=== PATIENT | male | born 1985 | race Two or more races ===

== ENCOUNTER 2019-02-07 18:28 | Emergency (ER) | payer SELFPAY ==
[2019-02-07] MEDS ORDERED: DIPH/PERTUSS(ACELL)/TETANUS VAC/PF 0.5 ML SYR (>=10YO) IM ONE (18:40)
--- NOTE | 2019-02-07 18:42 | ER Document Report ---
ED Medical Screen (RME) - General Chief Complaint: Wrist Pain Stated Complaint: HAND INJURY Time Seen by Provider: 02/07/19 18:37 Primary Care Provider: SHANE SAENZ [Primary Care Provider] - Follow up as needed Notes: This 33-year-old male presents emergency department with a laceration to his right wrist. Patient reports he cut himself on some glass. Does not know when his last tetanus was. Is not taking any anticoagulants. Laceration noted to the medial part of his right wrist approximately 4 cm long irregular deep no active bleeding at this time. Patient reports that his fourth and fifth digit feel numb. Good cap refill. I have greeted and performed a rapid initial assessment of this patient. A comprehensive ED assessment and evaluation of the patient, analysis of test results and completion of the medical decision making process will be conducted by additional ED providers. Dictation of this chart was performed using voice recognition software; therefore, there may be some unintended grammatical errors. TRAVEL OUTSIDE OF THE [place] IN LAST 30 DAYS: No Doctor's Discharge - Discharge Referrals: SHANE SAENZ [Primary Care Provider] - Follow up as needed
--- NOTE | 2019-02-07 19:07 | RADIOLOGY REPORT (SQ) ---
EXAM DESCRIPTION: WRIST RIGHT 3 VIEWS COMPLETED DATE/TIME: 02/07/2019 6:58 pm REASON FOR STUDY: laceration COMPARISON: None. NUMBER OF VIEWS: Three views. TECHNIQUE: AP, lateral, and oblique radiographic images acquired of the right wrist. LIMITATIONS: None. FINDINGS: MINERALIZATION: Normal. BONES: No acute fracture or dislocation. No worrisome bone lesions. Normal alignment. SOFT TISSUES: No radiopaque foreign body. OTHER: No other significant finding. IMPRESSION: NO ACUTE BONE ABNORMALITY OF THE RIGHT WRIST. NO RADIOPAQUE SOFT TISSUE FOREIGN BODY. TECHNICAL DOCUMENTATION: JOB ID: [id number] [employer]- All Rights Reserved Reading location - IP/workstation name: [email or web address]
[2019-02-07] MEDS ORDERED: LIDOCAINE 1%/EPINEPHRINE INJ 20 ML VIAL INJ ONE (20:13)
--- NOTE | 2019-02-07 20:17 | ER Document Report ---
ED General - General Chief Complaint: Wrist Pain Stated Complaint: HAND INJURY Time Seen by Provider: 02/07/19 18:37 Primary Care Provider: SHANE SAENZ [NO LOCAL MD] - Follow up as needed Notes: 33-year-old right hand dominant male presents emergency department with a laceration to his right wrist at around 5 pm. Patient reports he cut himself on some glass. Does not know when his last tetanus was. Is not taking any anticoagulants. Laceration noted to the medial part of his right wrist approximately 4 cm long irregular deep no active bleeding at this time. Patient reports that his fourth and fifth digit feel numb. Good cap refill. TRAVEL OUTSIDE OF THE [place] IN LAST 30 DAYS: No Past Medical History - Social History Smoking Status: Never Smoker Chew tobacco use (# tins/day): No Frequency of alcohol use: None Drug Abuse: None Family History: None Patient has suicidal ideation: No Patient has homicidal ideation: No Renal/ Medical History: Denies: Hx Peritoneal Dialysis Review of Systems - Review of Systems Constitutional: See HPI EENT: No symptoms reported Cardiovascular: No symptoms reported Respiratory: No symptoms reported Gastrointestinal: No symptoms reported Genitourinary: No symptoms reported Male Genitourinary: No symptoms reported Musculoskeletal: See HPI Skin: No symptoms reported Hematologic/Lymphatic: No symptoms reported Neurological/Psychological: See HPI Physical Exam - Vital signs Vitals: Temp Pulse Resp BP Pulse Ox 97.7 F 76 17 122/92 H 94 02/07/19 18:34 02/07/19 18:34 02/07/19 18:34 02/07/19 18:34 02/07/19 18:34 - Notes Notes: PHYSICAL EXAMINATION: Reviewed vital signs and charting by RN GENERAL: Alert, interacts well. No acute distress. HEAD: Normocephalic, atraumatic. EYES: Pupils equal and round. Extraocular movements intact. ENT: Oral mucosa moist, tongue midline. NECK: Full range of motion. Trachea midline. EXTREMITIES: Moves all 4 extremities spontaneously. No edema, No cyanosis. PSYCH: Normal affect, normal mood. SKIN: Warm, dry, normal turgor. 4 cm transverse laceration on the medial aspect of his right wrist just proximal to the ulnar head not actively bleeding that goes into the subcutaneous tissue, patient with reduced sensation to the fourth and fifth right digits of his hand, 5/5 strength in both flexor and extensor tendons to active movement and to resistance. Course - Re-evaluation Re-evalutation: 02/07/19 20:16 Overall well-appearing. Plan is a primary closure using 4-0 Ethilon with lidocaine 1% with epinephrine. Patient will receive his tetanus booster as he does not remember when his last one was. 02/07/19 22:01 Primary closure of the wound completed, patient tolerated procedure well, 4-0 Ethilon with lidocaine with epinephrine used, one vertical mattress suture applied to approximate the wound as it was fairly deep into the subcutaneous tissue, excellent approximation was achieved, patient given return precautions and instructions for care and removal. Stable for discharge. - Vital Signs Vital signs: Temp Pulse Resp BP Pulse Ox 98.9 F 80 18 133/76 H 95 02/07/19 21:39 02/07/19 21:39 02/07/19 21:39 02/07/19 21:39 02/07/19 21:39 Procedures - Laceration/Wound Repair Right Medial Wrist Wound length (cm): 4 Wound's Depth, Shape: Superficial Laceration pre-procedure: Sterile PPE donned Anesthetic type: 1% Lidocaine w/epi Wound explored: Clean Wound Debrided: Minimal Wound Repaired With: Sutures Suture Size/Type: 4:0, Ethilon Layer Closure?: No Discharge - Discharge Clinical Impression: Laceration Condition: Good Disposition: HOME, SELF-CARE Instructions: Antibiotic Ointment Protection ([facility]), Laceration Care ([facility]), Soap Cleansing ([facility]), Tetanus Immunization Given ([facility]) Additional Instructions: Please return to your primary doctor, the ED, or an urgent care in 7 days for suture removal. Return immediately if you develop spreading redness around the wound, pus from the wound, worsening pain, or a fever of >101. Keep the area clean and dry. Wash gently with soap and water twice daily and cover with antibiotic ointment. Referrals: DANY,NO [NO LOCAL MD] - Follow up as needed KAROLYN SANTOS MD [ACTIVE PROVISIONAL STAFF] - Follow up as needed (Follow up in 1-2 weeks if sensation in your ring and pinky finger does not return/improve)
[2019-02-07 21:42] VITALS: BP 133/76
[2019-02-07] MEDS ORDERED: HYDROCODONE/ACETAMINOPHEN 5-325 MG (6 TAB/ER DISP) PO PRN (21:47)
== END 2019-02-07 21:56 | disposition home or self-care (01) ==
LOC: ER 18:28
DX: S61.511A Laceration without foreign body of right wrist, initial encounter (principal); W25.XXXA Contact with sharp glass, initial encounter; Z23 Encounter for immunization
CPT/HCPCS: 99283; 90471; 73110; 90715; 12002; J3490